=== PATIENT | male | born 1950 | race Caucasian/White ===

== ENCOUNTER → 2019-11-25 06:17 | Outpatient (CLI) | payer OTHER | END | disposition home or self-care (01) | LOC: LAB 06:17 | DX: R73.01 Impaired fasting glucose (principal) ==

== ENCOUNTER 2019-11-29 08:48 | Outpatient (CLI) | payer OTHER | END 2019-11-29 08:51 | disposition home or self-care (01) | LOC: SONOGRAMA 08:48 | DX: R07.89 Other chest pain (principal); E04.1 Nontoxic single thyroid nodule ==

== ENCOUNTER 2022-02-21 07:31 | Outpatient (CLI) | payer OTHER | END 2022-02-21 07:32 | disposition home or self-care (01) | LOC: NUCLEAR 07:31 | PROVIDERS: ATTEND Internal Medicine Cardiovascular Disease | DX: M81.0 Age-related osteoporosis without current pathological fracture (principal) ==